=== PATIENT | male | born 1960 | race Caucasian/White ===

== ENCOUNTER → 2021-12-08 12:19 | Outpatient (BNVA) | payer OTHER, SELFPAY | PROVIDERS: Family Provider Family Medicine; PCP Family Medicine; Referring Provider Family Medicine; Visit Provider Surgery | DX: Z12.11 Encounter for screening for malignant neoplasm of colon (principal); K43.9 Ventral hernia without obstruction or gangrene | CPT/HCPCS: 99203 ==

== ENCOUNTER 2022-01-26 06:05 | Outpatient (CLI) | payer OTHER, SELFPAY ==
--- NOTE | 2022-01-26 | US_ITS ---
WS: [id number] RIGHT UPPER QUADRANT ULTRASOUND HISTORY: ELEVATED LFT'S COMPARISON: 01/14/2019 Liver: 18.3 cm in length. Mildly enlarged liver with coarse echotexture. No mass identified. No bile duct dilatation. Portal Vein: Normal hepatopetal flow with monophasic waveform. Gallbladder: Slightly contracted gallbladder with mildly prominent wall. No stones. No evidence for a cute cholecystitis. CBD: 0.5 cm Pancreas: Normal size and echogenicity. Right kidney: 11.3 cm in length. Normal size and echogenicity. No hydronephrosis or mass. Aorta and IVC: Unremarkable abdominal aorta and IVC. No ascites. US/US abdomen limited [id number] IMPRESSION: 1. Mild hepatomegaly and hepatic steatosis. 2. Very slightly contracted gallbladder. No evidence for acute cholecystitis. 3. No bile duct dilatation.
== END 2022-01-26 06:06 | disposition home or self-care (01) ==
LOC: RAD 06:06
PROVIDERS: Family Provider Family Medicine; PCP Family Medicine; Visit Provider Nurse Practitioner Family
DX: R94.5 Abnormal results of liver function studies (principal); R16.0 Hepatomegaly, not elsewhere classified; K76.0 Fatty (change of) liver, not elsewhere classified
CPT/HCPCS: 76705

== ENCOUNTER 2022-01-26 06:05 | Outpatient (CLI) | payer OTHER, SELFPAY ==
[2022-01-26] MEDS: barium sulfate 450 mL Oral Susp PO (07:39)
[2022-01-26] MEDS: iohexol 300 mg/mL 100 mL Btl IV (09:48)
--- NOTE | 2022-01-26 10:00 | CT_ITS ---
WS: [id number] CT ABDOMEN AND PELVIS WITH CONTRAST HISTORY: ventral hernia TECHNIQUE: Imaging performed of the abdomen and pelvis with IV contrast. Single phase imaging of the abdomen. Coronal and sagittal reformats are submitted. All CT scans at [facility] use at [address] one of these dose optimization techniques: automated exposure control; mA and/or kV adjustment per patient size (includes targeted exams where dose is matched to clinical indication); or iterative re construction. IV CONTRAST: Omnipaque 300; 95 mL IV. Oral contrast: Yes. DLP: 1093.08 mGy.cm COMPARISON: 01/14/2019 Lower thorax: Stable 4 mm nodule RIGHT lung base since 01/14/2019. Additional 2 to 3 mm nodules at the LEFT lung base. Normal size heart. Small hiatal hernia. Liver/biliary system: Mild diffuse hepatic steatosis. Liver is very slightly enlarged. Normal portal vein. Gallbladder: Normal. No gallstones or wall thickening. No pericholecystic fluid. Pancreas: Normal size pancreas and pancreatic duct. No adjacent inflammation. Spleen: Normal size spleen. No mass or infarct. Adrenal glands: Normal. Right kidney: Cortical thinning upper pole. Nonobstructing 6 mm calcification in the renal pelvis. Mi ld perinephric stranding. Left kidney: Normal size kidney. Stable cyst measures 2.3 x 2.4 cm from the mid kidney. No obstructio n. Aorta: Mild atherosclerosis with no aneurysm. Lymphadenopathy: None. Free fluid: None. GI tract: Normally distended stomach. No small bowel obstruction. Surgical clips are in the RIGHT low er quadrant. The appendix is not identified. No GI tract obstruction. No significant diverticular dis ease. Abdominal wall: RIGHT ventral wall defect measures 11 mm. Small amount of fat herniating through the defect. The abdominal wall is thin but no edema additional hernias are identified. Pelvis: Moderately well distended urinary bladder. Very mild bladder wall thickening. Prostate gland is mildly enlarged and heterogeneous. Patent inguin al canals containing fat only. Bones: Degenerative disc disease at L5-S1. No fractures. Remote healed rib fractures inferior lateral LEFT chest wall. Several sclerotic foci are present within the bones of the pelvis and are stable si nce 2019 consistent with bone islands. CT/CT abdomen pelvis w con* [id number] IMPRESSION: 1. RIGHT ventral wall defect at the level of the umbilicus contains fat only. 2. Patent bilateral inguinal canals contain fat only. 3. Mild diffuse hepatic steatosis.
== END 2022-01-26 06:06 | disposition home or self-care (01) ==
LOC: RAD 06:06
PROVIDERS: Family Provider Family Medicine; PCP Family Medicine; Visit Provider Surgery
DX: K43.9 Ventral hernia without obstruction or gangrene (principal); K76.0 Fatty (change of) liver, not elsewhere classified
CPT/HCPCS: 74177

== ENCOUNTER 2022-02-02 06:46 | Day surgery (SDC) | payer OTHER, SELFPAY ==
[2022-01-31 10:45] VITALS: BMI 30.4
[2022-02-02 07:12] VITALS: BP 151/84; PULSE 68; RESP 18; TEMP 36.5; O2SAT 100
[2022-02-02] MEDS: sodium chloride 0.9% 1,000 ML 30 ML IV (07:25)
--- NOTE | 2022-02-02 08:52 | P.HP_ITS ---
Same Day Surgery H&P Indication for Procedure/HPI DATE OF PROCEDURE: February 02, 2022 CHIEF COMPLAINT/INDICATIONFOR SURGICAL PROCEDURE: Screening colonoscopy PREOP DIAGNOSIS: Screening colonoscopy PLANNED PROCEDURE: Operation Date: 02/02/22 09:15 Proposed Procedures p Colonoscopy(Not Applicable) - Kevin Williamson MD 12/08/2021 This is a pleasant 60 years old gentleman presents with history of ventral hernia.? Patient denies any specific symptoms related to the hernia.? He was told to come for surgical consultation as it is better to be checked out.? Patient gives history of previous laparotomy likely due to perforated sigmoid colon but it is not clear per history, subsequently the patient developed stable asymptomatic ventral incisional hernia. Also patient according to his description never had a colonoscopy for screening purposes 02/02/2022 Patient comes today for screening colonoscopy ROS All systems have been reviewed negative except as for the above or per problem list. Medications/Allergies* Home Medications Medication Instructions Recorded Confirmed Type apixaban 5 mg tablet 2.5 mg PO BID 12/08/21 02/01/22 History atenolol 50 mg tablet 50 mg PO DAILY 12/08/21 02/01/22 History cholecalciferol (vitamin D3) 25 25 mcg PO DAILY 12/08/21 01/31/22 History mcg (1,000 unit) capsule Allergies/Adverse Reactions Allergy/AdvReac Type Severity Reaction Status Date / Time aspirin Allergy Mild ADR-Nose Verified 02/02/22 08:53 Bleed Current Medications: Generic Name Dose Route Start Last Admin Trade Name Freq PRN Reason Stop Dose Admin Sodium Chloride 1,000 mls @ 30 mls/hr 02/02/22 07:00 02/02/22 07:25 Sodium Chloride 0.9% IV 02/03/22 06:59 30 mls/hr .Q24H YONI Administration Pertinent History/Comorbid Conditions* Family History (Updated 12/08/21 @ 12:56 by Camila Dong MA) Diabetes Cancer Social History Smoking and tobacco status: former smoker Pertinent Exam Findings alert, oriented x 3, regular rate & rhythm and procedure specific exam findings (Abdominal exam nontender nondistended soft) Recommendations Surgery/Procedure today (Screening colonoscopy) Coding Level of Care Code Acute Catcher Filter Tip for Laurence Sharma
--- NOTE | 2022-02-02 08:54 | ANES.PREANE2 ---
Pre-Anesthetic Assessment Height/Weight: Height 1.73 m Weight 90.718 kg Temp Pulse Resp BP Pulse Ox 97.7 F 68 18 151/84 100 02/02/22 07:12 02/02/22 07:12 02/02/22 07:12 02/02/22 07:12 02/02/22 07:12 Preop Diagnosis: Screening colonoscopy Operation Date: 02/02/22 09:15 Proposed Procedures p Colonoscopy(Not Applicable) - Kevin Williamson MD Familial anesthetic complications: None Was Beta Trent taken within 24 hours: Yes Was Clonidine taken within 24 hours: N/A Last intake: Intake Last Liquid Date 02/01/22 Last Liquid Time 20:00 Last Solid Date 01/31/22 Last Solid Time 23:59 Social No alcohol and No tobacco Exam alert, oriented x 3, clear to auscultation bilaterally and regular rate & rhythm Airway Submandibular: within normal limits Cervical ROM: within normal limits Mallampati: Class II Comments: Comments: poor dentition History/ROS No significant complaints Pulmonary None reported denies lung disease CV/HEM Deep Vein Thrombosis (On anticoagulation for recurring DVT) and Hypertension Denies CAD, valvular disease METs = 4 , limited due to pain in legs, denies vascular disease None reported Hepatic None reported GI Gastroesophageal Reflux Disease (Well controlled) Ventral hernia Metabolic None reported Musc/skel None reported Neuropsych None reported Anesthetic Plan ASA status: 2 Anesthesia: Anesthesia Evaluation, General and MAC Other: I discussed with the patient risks, goals, and benefits of MAC and general anesthesia. We discussed spectrum of MAC anesthesia including conversion to general as well as possibility of recall of intraoperative stimuli including discomfort/pain. Patient agrees to proceed with MAC. Risk of > 500 ml blood loss (7ml/kg in children): No Medications/Allergies Home Medications Medication Instructions Recorded Confirmed Last Taken Type apixaban 5 mg tablet 2.5 mg PO BID 12/08/21 02/01/22 01/30/22 History atenolol 50 mg tablet 50 mg PO DAILY 12/08/21 02/01/22 02/02/22 05:30 History cholecalciferol (vitamin D3) 25 25 mcg PO DAILY 12/08/21 01/31/22 02/02/22 05:30 History mcg (1,000 unit) capsule Allergies Allergy/AdvReac Type Severity Reaction Status Date / Time aspirin Allergy Mild ADR-Nose Verified 02/02/22 08:53 Bleed Current Medications Generic Name Dose Route Start Last Admin Trade Name Freq PRN Reason Stop Dose Admin Sodium Chloride 1,000 mls @ 30 mls/hr 02/02/22 07:00 02/02/22 07:25 Sodium Chloride 0.9% IV 02/03/22 06:59 30 mls/hr .Q24H YONI Administration PFSH Anesthesia Family History (Updated 12/08/21 @ 12:56 by Camila Dong MA) Other Cancer Diabetes Social History (Updated 12/08/21 @ 12:56 by Camila Dong MA) Smoking and tobacco status: former smoker Data Anesthesia Cardiac Studies: No Data to Display
[2022-02-02 09:28] VITALS: BP 117/67; PULSE 71; RESP 19; TEMP 36.1; O2SAT 98
--- NOTE | 2022-02-02 09:30 | ANE.PACU2 ---
Documented by User: Chloe Leonard CRNA 02/02/22 09:30 Inpatient post-anesthesia follow up: Airway intact: Yes Vital signs: Temperature 97.7 F Pulse Rate 68 Respiratory Rate 18 Blood Pressure 151/84 Pulse Oximetry 100 Oxygen Delivery Me thod Room Air Oxygen Flow Rate Fraction of Inspir ed Oxygen Hydration adequate: Yes Nausea and vomiting: No Pain level: 1 Mental status: Baseline
[2022-02-02 09:37] VITALS: BP 120/64; PULSE 66; RESP 16; O2SAT 100
[2022-02-02 09:40] VITALS: BP 134/70; PULSE 64; RESP 16; O2SAT 100
== END 2022-02-02 09:55 | disposition home or self-care (01) ==
PROVIDERS: PCP Family Medicine; Visit Provider Surgery
PROC: 0DJD8ZZ Inspection of Lower Intestinal Tract, Via Natural or Artificial Opening Endoscopic (ICD-10-PCS; CPT 45378; principal; 2022-02-02 09:15)
DX: Z12.11 Encounter for screening for malignant neoplasm of colon (principal); Q27.30 Arteriovenous malformation, site unspecified; Z86.718 Personal history of other venous thrombosis and embolism; Z79.01 Long term (current) use of anticoagulants; I10 Essential (primary) hypertension; K21.9 Gastro-esophageal reflux disease without esophagitis; Z87.891 Personal history of nicotine dependence
CPT/HCPCS: 45378; J2704; J7030

== ENCOUNTER → 2022-02-09 13:57 | Outpatient (BNVA) | payer OTHER, SELFPAY | PROVIDERS: PCP Family Medicine; Visit Provider Surgery | DX: Z09 Encounter for follow-up examination after completed treatment for conditions other than malignant neoplasm (principal); K55.20 Angiodysplasia of colon without hemorrhage | CPT/HCPCS: 99213 ==